=== PATIENT | male | born 1995 | race Two or more races ===

== ENCOUNTER 2019-08-08 03:02 | Emergency (ER) | payer OTHER ==
[~2019-08-08] VITALS: Ht 172.7 cm; Wt 93.0 kg
[2019-08-08 03:18] VITALS: BP 154/98
--- NOTE | 2019-08-08 03:21 | NUR ---
PT CAME TO THE ED C/O RAPID HEART RATE. PT STATES HE FEELS LIKE HIS HEART IS RACING AFTER SMOKING WEED X 1 HR. PT ALSO ENDORSES BITTER TASTE IN THE TONGUE. PT AAOX4, RR EVEN AND UNLABORED ON RA W NAD NOTED. PT CONNECTED TO THE CARDRO[employer] DRAWING [employer]NER AND POX
--- NOTE | 2019-08-08 03:50 | NUR ---
Patient discharged to home in stable condition. Written and verbal after care instructions given. Patient verbalizes understanding of instruction.
== END 2019-08-08 03:50 | disposition home or self-care (01) ==
LOC: ER 03:05
DX: R00.0 Tachycardia, unspecified (principal); R00.2 Palpitations
CPT/HCPCS: 82962-TC